=== PATIENT | female | born 1965 | race Caucasian/White ===

== ENCOUNTER 2018-04-01 23:37 | Emergency (ER) | payer OTHER ==
[~2018-04-01] VITALS: Ht 165.1 cm; Wt 81.7 kg
[2018-04-02] MEDS ORDERED: NEURONTIN 300300 M1 PO (00:13)
[2018-04-02] MEDS ORDERED: DEPAKOTE ER500 MG PO (00:13)
[2018-04-02] MEDS ORDERED: TOPIRAMATE50 MG PO (00:14)
[2018-04-02] MEDS ORDERED: ARICEPT 5 MG TAB5 MG PO (00:14)
[2018-04-02 00:16] LABS: HEMATOCRIT 29.2 % (37.0-47.0); HEMOGLOBIN 9.8 gm/dL (12.0-15.0); MCH 30.4 pg (26.0-34.0); MCHC 33.7 g/dL (28.0-37.0); PLATELET COUNT 184 thou/uL (150-400); RBC 3.24 mil/uL (4.20-5.00); WBC 5.1 thou/uL (4.0-11.0)
[2018-04-02 00:25] LABS: ANION GAP 12 mmol/L (7-16); BUN 16 mg/dL (7-18); CALCIUM 9.7 mg/dL (8.5-10.1); CHLORIDE 107 mmol/L (98-107); CO2 24 mmol/L (21-32); CREATININE 0.8 mg/dL (0.6-1.0); GLUCOSE 130 mg/dL (74-106); POTASSIUM 3.3 mmol/L (3.5-5.1); SODIUM 143 mmol/L (136-145)
[2018-04-02 00:34] LABS: TROPONIN-I <0.06 ng/mL (<0.06)
[2018-04-02 01:07] LABS: ABSOLUTE NEUTROPHILS 2.6 thou/uL (1.4-8.2); ANISOCYTOSIS 1+
[2018-04-02 01:40] VITALS: BP 115/52
--- NOTE | 2018-04-02 08:17 | EKG ---
[place] [address] [facility] [place] [address] ELECTROCARDIOGRAM REPORT Name: KAT RUSSO Room #: [facility]P [facility] [id number] Admission: 04/01/18 Attend Phys: Discharge: 04/02/18 Date of : 63 Report #: [id number] THIS REPORT FOR: //name// [facility] ED Test Date: 2018-04-02 Test Time: 00:02:33 Pat Name: KAT RUSSO Department: Room: Gender: F Steerer: DEVI BAEZ : 1965 Requested By: Maddison Martínez Order Number: [id number] MD: Ronnie Chamberlain Measurements Intervals [place] Rate: 68 P: 30 KS: 156 QRS: -4 QRSD: 86 T: 42 QT: 360 QTc: 383 Interpretive Statements Sinus rhythm Consider right atrial enlargement Baseline wander in lead(s) V2,V3 No previous ECG available for comparison Electronically Signed On 04-02-2018 8:17:15 [employer] by Ronnie Chamberlain [email or web address] <ELECTRONICALLY SIGNED> By: Ronnie Chamberlain MD 04/02/18 0817 0002 0002 Ronnie Chamberlain MD /IRIS
== END 2018-04-02 01:41 | disposition home or self-care (01) ==
LOC: ER 23:37
PROVIDERS: Student in an Organized Health Care Education/Training Program
DX: E87.5 Hyperkalemia (principal); F41.9 Anxiety disorder, unspecified

== ENCOUNTER 2018-04-13 10:00 | Inpatient (IN) | payer OTHER ==
[~2018-04-13] VITALS: Ht 165.1 cm; Wt 81.6 kg
[~2018-04-13 10:00] MED LIST: ARICEPT 5 MG TAB5 MG PO; DEPAKOTE ER500 MG PO; NEURONTIN 300300 M1 PO; TOPIRAMATE50 MG PO
[2018-04-13 10:02] VITALS: BP 120/69
[2018-04-13 10:44] LABS: ABSOLUTE NEUTROPHILS 1.9 thou/uL (1.4-8.2); BASOPHILS 0.9 % (0.0-2.0); EOSINOPHILS 1.5 % (0.0-3.0); HEMATOCRIT 29.8 % (37.0-47.0); HEMOGLOBIN 10.1 gm/dL (12.0-15.0); LYMPHOCYTES 40.1 % (24.0-44.0); MCH 30.2 pg (26.0-34.0); MCHC 33.8 g/dL (28.0-37.0); MCV 89.4 fL (80.0-100.0); MONOCYTES 9.2 % (1.0-8.0); PLATELET COUNT 169 thou/uL (150-400); POLYS 48.3 % (36.0-66.0); RBC 3.33 mil/uL (4.20-5.00); RDW 16.5 % (10.5-14.5)
[2018-04-13 10:51] LABS: CALCIUM 9.6 mg/dL (8.5-10.1); CREATININE 0.7 mg/dL (0.6-1.0); POTASSIUM 3.7 mmol/L (3.5-5.1)
[2018-04-13 10:56] LABS: ALBUMIN 3.8 g/dL (3.4-5.0); MAGNESIUM 2.1 mg/dL (1.8-2.4); TOTAL BILIRUBIN 0.3 mg/dL (<0.1-1.0); TOTAL PROTEIN 7.2 g/dL (6.4-8.2)
[2018-04-13 11:10] LABS: AMP/METHAMP Negative (Negative); BARBITURATES Negative (Negative); BENZODIAZEPINES Negative (Negative); COCAINE Negative (Negative); METHADONE Negative (Negative); OPIATES Negative (Negative); PCP Negative (Negative)
[2018-04-13] MEDS ORDERED: DEPAKOTE500 MG PO (11:25)
--- NOTE | 2018-04-13 12:00 | NUR ---
RESIDENT HAVING SEIZURE. INFORMED MD
[2018-04-13 12:50] VITALS: BP 105/59
[2018-04-13 13:08] VITALS: BP 100/45
--- NOTE | 2018-04-13 16:43 | NUR ---
PT ARRIVED FROM ER APPROXIMATELY 1340 POST SEIZURE, FAMLY BESIDE AT TIME OF MEETING PT WHO SPOKE FOR THE PATIENT. ON ASSESMENT WITHOUT FAMILY PRESENT. PT IS SOFT SPOKEN AND STATES SHE CANNOT REMEMBER THE SEIZURE NOR WHAT LEAD UP TO IT. VSS, PAIN MANAGED WITH MEDICATIONS,SEIZURE/FALL PRECAUTIONS IN PLACE. STEADY WITH STANDY BY. CONSULETED WITH DR. ARZOLA TODAY WHO RECOMMEDED SHE FOLLOW UP WITH DR ROLLINS. ADMISSION ASSESMENT AND HISTORY COMPLETED. ORDERS ACKNOWLEDGED. CALL LIGHT IN REACH.
[2018-04-13 16:45] VITALS: BP 100/59
[2018-04-13 19:25] VITALS: BP 105/60
--- NOTE | 2018-04-14 02:01 | NUR ---
PATIENT AOX3 MAKES NEEDS KNOWN. NO SEIZURES THIS SHIFT. PATIENT HAD A HEADACHE DURING ASSESSMENT, PATIENT FELT BETTER AFTER TAKING TOPAMAX PER DR. ORDER. PATIENT IN BED ASLEEP NO S/S OF PAIN OR DISTRESS. PATIENT AMBULATES TO THE BATHROOM. PATIENT IN BED ASLEEP AT THIS TIME BREATHING REGULAR AND UNLABOURED.
[2018-04-14 02:28] VITALS: BP 100/57
[2018-04-14 05:36] VITALS: BP 92/53
[2018-04-14 07:29] VITALS: BP 109/59
[2018-04-14] MEDS ORDERED: XANAX 0.25 MG0.25 MG PO (08:49)
[2018-04-14 10:11] VITALS: BP 109/59
--- NOTE | 2018-04-14 11:08 | NUR ---
Pt stable this am, and able to use the commode with ease. Complained of pain in her mid back, pain medication given. Family is in the room. Seen by hopsitalist, dc orders given. DC instructions and prescriptions given to the pt and daughter. Pt will be going home with her daughter. Pt is now dc.
== END 2018-04-14 12:24 | disposition home or self-care (01) | DRG 101 ==
LOC: ER 10:00 → 4W 12:31 → EROBS 12:31 → 4W 13:34
PROVIDERS: Emergency Medicine; ADMIT Internal Medicine
DX: R56.9 Unspecified convulsions (principal); J45.909 Unspecified asthma, uncomplicated; M19.90 Unspecified osteoarthritis, unspecified site; G43.909 Migraine, unspecified, not intractable, without status migrainosus; F41.9 Anxiety disorder, unspecified; Z79.899 Other long term (current) drug therapy; Z91.14 Patient's other noncompliance with medication regimen
CPT/HCPCS: 10045

== ENCOUNTER 2020-12-16 09:47 | Emergency (ER) | payer BC ==
[~2020-12-16] VITALS: Ht 165.1 cm; Wt 81.7 kg
[~2020-12-16 09:47] MED LIST changes: +DEPAKOTE500 MG PO; +XANAX 0.25 MG0.25 MG PO
[2020-12-16 10:14] LABS: ABSOLUTE NEUTROPHILS 3.3 thou/uL (1.4-8.2); EOSINOPHILS 2.2 % (0.0-3.0); HEMATOCRIT 37.7 % (37.0-47.0); HEMOGLOBIN 12.4 gm/dL (12.0-15.0); LYMPHOCYTES 29.7 % (24.0-44.0); MCH 27.4 pg (26.0-34.0); MCHC 32.8 g/dL (28.0-37.0); MCV 83.5 fL (80.0-100.0); MONOCYTES 6.6 % (1.0-8.0); PLATELET COUNT 222 thou/uL (150-400); POLYS 60.5 % (36.0-66.0); RBC 4.51 mil/uL (4.20-5.00); RDW 15.9 % (10.5-14.5); WBC 5.5 thou/uL (4.0-11.0)
[2020-12-16 10:18] LABS: ANION GAP 6 mmol/L (7-16); BUN 14 mg/dL (7-18); CALCIUM 9.5 mg/dL (8.5-10.1); CHLORIDE 106 mmol/L (98-107); CO2 28 mmol/L (21-32); CREATININE 0.8 mg/dL (0.6-1.0); GLUCOSE 103 mg/dL (74-106); POTASSIUM 4.1 mmol/L (3.5-5.1); SODIUM 140 mmol/L (136-145)
[2020-12-16 10:30] LABS: ALBUMIN 3.6 g/dL (3.4-5.0); SGOT 27 U/L (15-37); SGPT 31 U/L (14-59); TOTAL BILIRUBIN 0.4 mg/dL (0.2-1.0); TOTAL PROTEIN 7.6 g/dL (6.4-8.2)
[2020-12-16] MEDS ORDERED: IBUPROFEN 800800 MG PO (12:27)
[2020-12-16] MEDS ORDERED: DIAZEPAM 5 MG5 M1 PO (12:27)
[2020-12-16 12:30] VITALS: BP 133/79
--- NOTE | 2020-12-17 07:32 | EKG ---
[address] [place] [address] ELECTROCARDIOGRAM REPORT Name: KAT RUSSO Room [id number] Admission: 12/16/20 Attend Phys: Discharge: 12/16/20 Date of : 63 Report #: [id number] [facility] ED Test Date: 2020-12-16 Test Time: 09:48:21 Pat Name: KAT RUSSO Department: Room: Gender: F Price Lister: Anisa LARSON : 1965 Requested By: Ezio Odell Order Number: [id number] MD: Farooq Styles Measurements Intervals [place] Rate: 63 P: 51 DE: 151 QRS: -14 QRSD: 92 T: 35 QT: 381 QTc: 390 Interpretive Statements Sinus rhythm Compared to ECG 04/02/2018 00:02:33 No significant changes Electronically Signed On 12-17-2020 7:32:13 CDT by Farooq Styles [email or web address] <ELECTRONICALLY SIGNED> By: Farooq Styles MD, [facility] 12/17/20 0732 0948 [id number] Farooq Styles MD, FACC /EPI
== END 2020-12-16 12:43 | disposition home or self-care (01) ==
LOC: ER 09:47
PROVIDERS: Emergency Medicine
DX: M54.12 Radiculopathy, cervical region (principal); R07.89 Other chest pain; R53.1 Weakness; G43.909 Migraine, unspecified, not intractable, without status migrainosus; J45.909 Unspecified asthma, uncomplicated; M19.90 Unspecified osteoarthritis, unspecified site